=== PATIENT | female | born 1980 | race African-American/Black ===

== ENCOUNTER 2016-12-29 12:49 | Emergency (ER) | payer BC ==
[~2016-12-29 12:49] MED LIST: *DENIES; FOLIC ACID400 MC1 PO; I40 PO; TAPAZOLE10 MG PO
== END 2016-12-29 13:30 | disposition home or self-care (01) ==
LOC: ER 12:49
DX: H11.31 Conjunctival hemorrhage, right eye (principal); M76.62 Achilles tendinitis, left leg; E03.9 Hypothyroidism, unspecified; Z79.899 Other long term (current) drug therapy; Z87.891 Personal history of nicotine dependence
CPT/HCPCS: 99283; A9270-GY